=== PATIENT | male | born 1995 | race Caucasian/White ===

== ENCOUNTER 2020-04-23 18:51 | Emergency (ER) | payer MEDICAID ==
[~2020-04-23] VITALS: Ht 175.3 cm; Wt 135.2 kg
--- NOTE | 2020-04-23 19:12 | NUR ---
AMB TO BED 09
[2020-04-23 19:14] VITALS: BP 128/52
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
--- NOTE | 2020-04-23 19:27 | NUR ---
PHIL YANG AT BEDSIDE
[2020-04-23] MEDS ORDERED: KETOROLAC 30 MG/ML VIAL IM ONE (19:30)
[2020-04-23] MEDS ORDERED: BACITRACIN OINT 500 UNITS/GM PKT TP ONE ×2 (19:30→19:31)
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
--- NOTE | 2020-04-23 20:05 | NUR ---
Note undone in EDM - 04/23/20 at 2056 by DANIEL DISCHARGED AMBULATORY IN NAD. ACI AND RX IN POSESSION WITH UNDERSTANDING EXPRESSED. TEACHING REGARDING dT AND WOUND CARE GIVEN, ALONG WITH FOLLOW UP CARE AND MEDICATION EDUCATION. ARM BAND REMOVED. CALL MADE TO JOSÉ LUIS RE PTS DISCHARGE. PT WILL BE IN WAITING ROOM, WAITING FOR RIDE.
[2020-04-23 20:20] VITALS: BP 128/52
--- NOTE | 2020-04-23 20:20 | NUR ---
DISCHARGED AMBULATORY IN NAD. ACI AND RX IN POSESSION WITH UNDERSTANDING EXPRESSED. TEACHING REGARDING dT AND WOUND CARE GIVEN, ALONG WITH FOLLOW UP CARE AND MEDICATION EDUCATION. ARM BAND REMOVED. CALL MADE TO JOSÉ LUIS RE PTS DISCHARGE. PT WILL BE IN WAITING ROOM, WAITING FOR RIDE.
== END 2020-04-23 20:20 | disposition home or self-care (01) ==
LOC: MED 18:51
DX: T23.002A Burn of unspecified degree of left hand, unspecified site, initial encounter (principal); X10.2XXA Contact with fats and cooking oils, initial encounter; Y93.89 Activity, other specified; Y92.89 Other specified places as the place of occurrence of the external cause; Y99.8 Other external cause status
CPT/HCPCS: 16000; 90471; 90715; 96372; 99284; J1885